=== PATIENT | female | born 1980 | race Two or more races ===

== ENCOUNTER 2017-03-02 19:47 | Emergency (ER) | payer MEDICAID ==
[~2017-03-02] VITALS: Ht 154.9 cm; Wt 71.7 kg
[2017-03-02 22:50] VITALS: BP 168/87
== END 2017-03-02 23:40 | disposition home or self-care (01) ==
LOC: ER 20:02
DX: J32.9 Chronic sinusitis, unspecified (principal)
CPT/HCPCS: 70450

== ENCOUNTER 2018-03-15 11:20 | Emergency (ER) | payer MEDICAID ==
[~2018-03-15] VITALS: Ht 152.4 cm; Wt 67.6 kg
[~2018-03-15 11:20] MED LIST: PANT40TA2 PO; PRE1T PO
[2018-03-15 11:54] LABS: Basophils # (auto) 0.2 uL; Eosinophils # (auto) 0.4 uL; Eosinophils % (auto) 2.4 % (0.0-7.0); Hematocrit 42.3 % (36.0-46.0); Hemoglobin 14.1 g/dL (12.2-16.2); Lymphocytes # (auto) 4.5 uL; Lymphocytes % (auto) 29.9 % (10.0-50.0); Mean Corpuscular Hemoglobin 29.5 pg (28.0-32.0); Mean Corpuscular Hgb Conc. 33.3 g/dL (32.0-36.0); Mean Corpuscular Volume 88.6 fL (80.0-100.0); Monocytes # (auto) 1.4 uL; Monocytes % (auto) 9.1 % (0.0-12.0); Neutrophils # (auto) 8.7 uL; Neutrophils % (auto) 57.6 % (37.0-80.0); Nucleated Red Blood Cells % 0.1 %; Platelet Count (auto) 441 10^3/uL (140-450); Red Blood Cells 4.78 10^6/uL (4.0-5.20); Red Cell Distribution Width 13.9 % (11.8-14.3); White Blood Cell 15.1 10^3/uL (4.4-10.8)
[2018-03-15 12:03] LABS: BUN/Creatinine Ratio 25.8; Calcium 7.5 mg/dL (8.5-10.1); Potassium 4.2 mmol/L (3.5-5.1)
[2018-03-15 12:05] LABS: Bilirubin, Total 0.2 mg/dL (0.2-1.0); Total Protein 8.5 g/dL (6.4-8.2)
[2018-03-15 12:21] VITALS: BP 139/93
[2018-03-15 12:37] LABS: Urine Bacteria FEW /hpf (None Seen); Urine Blood Negative /uL (Negative); Urine Specific Gravity 1.009 (1.001-1.035); Urine WBC 5 /hpf (0 - 5)
== END 2018-03-15 16:34 | disposition home or self-care (01) ==
LOC: ER 11:20
DX: N39.0 Urinary tract infection, site not specified (principal)
CPT/HCPCS: 36415; 80053; 81001; 85025; 94761

== ENCOUNTER 2020-01-31 21:27 | Emergency (ER) | payer MEDICAID ==
[~2020-01-31] VITALS: Ht 154.9 cm; Wt 71.7 kg
[2020-01-31] MEDS ORDERED: cloNIDine HCL 0.1 MG TAB PO ONE (22:00)
[2020-01-31 22:26] LABS: Basophils # (auto) 0.1 10 ^3/uL (0-0.2); Basophils % (auto) 0.5 % (0.0-2.0); Eosinophils # (auto) 0.4 10 ^3/uL (0-0.8); Eosinophils % (auto) 2.5 % (0.0-7.0); Hematocrit 39.8 % (36.0-46.0); Hemoglobin 13.4 g/dL (12.2-16.2); Lymphocytes # (auto) 4.7 10 ^3/uL (0.4-5.4); Lymphocytes % (auto) 31.8 % (10.0-50.0); Mean Corpuscular Hemoglobin 29.2 pg (28.0-32.0); Mean Corpuscular Hgb Conc. 33.5 g/dL (32.0-36.0); Mean Corpuscular Volume 87.2 fL (80.0-100.0); Monocytes # (auto) 1.2 10 ^3/uL (0-1.3); Monocytes % (auto) 8.3 % (0.0-12.0); Neutrophils # (auto) 8.4 10 ^3/uL (1.6-8.6); Neutrophils % (auto) 56.9 % (37.0-80.0); Nucleated Red Blood Cells % 0.1 %; Platelet Count (auto) 340 10^3/uL (140-450); Red Blood Cells 4.57 10^6/uL (4.0-5.20); Red Cell Distribution Width 12.8 % (11.8-14.3); White Blood Cell 14.7 10^3/uL (4.4-10.8)
[2020-01-31 22:32] LABS: Urine Bacteria FEW /hpf (None Seen); Urine Blood Negative /uL (Negative); Urine Mucus FEW (None Seen); Urine Specific Gravity 1.027 (1.001-1.035); Urine WBC 12 /hpf (0 - 5)
[2020-01-31 22:45] LABS: Albumin 3.8 g/dL (3.4-5.0); Anion Gap 3 (5-15); BUN/Creatinine Ratio 21.4; Blood Urea Nitrogen 12 mg/dL (7-18); Calcium 8.9 mg/dL (8.5-10.1); Carbon Dioxide 31 mmol/L (21-32); Chloride 104 mmol/L (98-107); GFR African American 157 mL/min; GFR Non-African American 129 mL/min; Glucose 106 mg/dL (74-106); Magnesium 2.1 mg/dL (1.6-2.6); Potassium 4.1 mmol/L (3.5-5.1); Sodium 138 mmol/L (136-145)
[2020-01-31 22:54] LABS: Alanine Aminotransferase 21 U/L (13-56); Alkaline Phosphatase 72 U/L (45-117); Aspartate Aminotransferase 19 U/L (15-37); Bilirubin, Total 0.2 mg/dL (0.2-1.0); Total Protein 8.4 g/dL (6.4-8.2)
[2020-02-01 01:24] VITALS: BP 131/65
== END 2020-02-01 02:25 | disposition home or self-care (01) ==
LOC: ER 21:29
DX: R07.89 Other chest pain (principal); N39.0 Urinary tract infection, site not specified; R11.2 Nausea with vomiting, unspecified
CPT/HCPCS: 36415; 71045; 80053; 81001; 81025; 83735; 84443; 84484; 85025; 93005

== ENCOUNTER 2021-08-31 17:45 | Emergency (ER) | payer MEDICAID ==
[~2021-08-31] VITALS: Ht 154.9 cm; Wt 71.7 kg
[2021-08-31 21:04] VITALS: BP 188/74
[2021-08-31] MEDS ORDERED: methylPREDNISolone SOD SUCC 125 MG/2 ML VL IM ONE (22:15)
[2021-08-31 22:38] LABS: Basophils # (auto) 0.1 10 ^3/uL (0-0.2); Basophils % (auto) 0.6 % (0.0-2.0); Eosinophils # (auto) 0.3 10 ^3/uL (0-0.8); Eosinophils % (auto) 2.8 % (0.0-7.0); Hemoglobin 12.6 g/dL (12.2-16.2); Lymphocytes # (auto) 4.2 10 ^3/uL (0.4-5.4); Mean Corpuscular Hemoglobin 29.8 pg (28.0-32.0); Mean Corpuscular Hgb Conc. 34.1 g/dL (32.0-36.0); Mean Corpuscular Volume 87.5 fL (80.0-100.0); Monocytes # (auto) 0.9 10 ^3/uL (0-1.3); Neutrophils # (auto) 5.6 10 ^3/uL (1.6-8.6); Neutrophils % (auto) 50.6 % (37.0-80.0); Nucleated Red Blood Cells % 0.1 %; Red Blood Cells 4.23 10^6/uL (4.0-5.20); Red Cell Distribution Width 12.8 % (11.8-14.3); White Blood Cell 11.2 10^3/uL (4.4-10.8)
[2021-08-31 22:48] LABS: INR 1.01 (0.9-1.15)
[2021-08-31 22:53] LABS: Albumin 3.1 g/dL (3.4-5.0); BUN/Creatinine Ratio 16.3; Calcium 8.3 mg/dL (8.5-10.1); Magnesium 2.3 mg/dL (1.6-2.6); Potassium 3.4 mmol/L (3.5-5.1)
[2021-08-31 23:00] LABS: Bilirubin, Total 0.5 mg/dL (0.2-1.0); Total Protein 7.7 g/dL (6.4-8.2)
== END 2021-08-31 23:48 | disposition home or self-care (01) ==
LOC: ER 17:45
DX: L50.9 Urticaria, unspecified (principal); R21 Rash and other nonspecific skin eruption; L29.9 Pruritus, unspecified; R51.9 Headache, unspecified; I10 Essential (primary) hypertension; Z79.899 Other long term (current) drug therapy
CPT/HCPCS: 36415; 80053; 83735; 85025; 85610; 96372; 99283; J2930

== ENCOUNTER 2025-05-21 08:53 | Emergency (ER) | payer MEDICAID ==
[~2025-05-21] VITALS: Ht 154.9 cm; Wt 76.3 kg
[2025-05-21 09:11] VITALS: BP 135/79; PULSE 71; RESP 17; TEMP 98.4; O2SAT 97
[2025-05-21] MEDS ORDERED: CETI5TAB6 PO (09:20)
[2025-05-21] MEDS ORDERED: FLUT1SPR5 (09:20)
--- NOTE | 2025-05-21 09:21 | ED.PDOC ---
Eye-HPI HPI Comments 44-year-old female presents with a chief complaint of tinnitus onset last night. Patient states symptoms started last night Associated with mild discomfort that is rated as mild to moderate Patient has no discharge from the ear canal. No therapies tried for the symptoms noted above. Hearing is intact Denies blunt trauma (hand blow to the ear, fall, direct hit) Denies penetrating trauma (Q-tip use, match-stick, gunshot wound, welding spark) Denies ear trauma Denies barotrauma Denies blast injury Denies air travel Denies scuba diving Denies fever chills night sweats unintentional weight loss Denies nausea vomiting severe headache or recent vision changes Chief Complaint: Earache Time Seen by MD: 09:10 Primary Care Provider: NONE Reviewed Notes: Medications, Allergies Allergies: Coded Allergies: NO KNOWN ALLERGIES (Unverified , 08/17/16) Home Meds Active Scripts Cetirizine Hcl (Cetirizine Hcl) 5 Mg Tab, 10 MG PO DAILY for 30 Days, #60 TAB 0 Refills Prov:ENEIDA HELTON NP 05/21/25 Fluticasone Propionate (Nasal) (Flonase Allergy Relief) 50 Mcg/Act Spr, 1 SPRAY NA BID for 30 Days, #1 BOTTLE 0 Refills Prov:ENEIDA HELTON NP 05/21/25 Pantoprazole Sodium Sesquihydr (Protonix) 40 Mg Tab, 40 MG PO DAILY, #30 TAB Prov:RENEE PICKENS MD 03/11/18 Prednisone (PREDNISONE) 1 Mg Tb, 60 MG PO DAILY, #14 Prov:RENEE PICKENS MD 03/11/18 Information Source: Patient Mode of Arrival: Ambulatory Timing: Hours Duration: Since onset Prehospital treatment: None Quality: Pain Lids: Normal Conjunctiva: Normal Cornea: Normal Pupils: Normal EOM: Normal Fundus: Normal Slit lamp exam: Normal Anterior chamber: Normal Mouth: Normal ENT Ear Exam: Normal, Normal, Normal Nose: Normal Sinuses: Normal Oropharynx: Normal Onset: Spontaneous Throat Exposed to: None Past Medical History PAST MEDICAL HISTORY: Anemia, Gallstones, HTN Surgical History: Denies all surgeries 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 MACHINE OPERATOR History: No Pertinent 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 MACHINE OPERATOR History Family History Family History: Reviewed,noncontributory to illness Social History Smoker: Non-Smoker Alcohol: Denies ETOH Use Drugs: Denies Drug Use Lives In: Home Constitutional: denies: chills, diaphoresis, fatigue, fever, malaise, sweats, weakness, others EENTM: reports: ear pain, ear ringing; denies: blurred vision, double vision, ear bleeding, ear discharge, ear drainage, eye pain, eye redness, hearing loss, mouth pain, mouth swelling, nasal discharge, nose bleeding, nose congestion, nose pain, photophobia, tearing, throat pain, throat swelling, voice changes, others Respiratory: denies: cough, hemoptysis, orthopnea, SOB at rest, shortness of breath, SOB with excertion, stridor, wheezing, others Cardiovascular: denies: chest pain, dizzy spells, diaphoresis, Dyspnea on exertion, edema, irregular heart beat, left arm pain, lightheadedness, palpitations, PND, syncope, others Gastrointestinal: denies: abdomen distended, abdominal pain, blood streaked bowels, constipated, diarrhea, dysphagia, difficulty swallowing, hematemesis, melena, nausea, poor appetite, poor fluid intake, rectal bleeding, rectal pain, vomiting, others Genitourinary: denies: abnormal vagina bleeding, burning, dyspareunia, dysuria, flank pain, frequency, hematuria, incontinence, pain, , vagina discharge, urgency, others Neurological: denies: dizziness, fainting, headache, left sided numbness, left sided weakness, numbness, paresthesia, pre-existing deficit, right sided numbness, right sided weakness, seizure, speech problems, tingling, tremors, weakness, others Musculoskeletal: denies: back pain, gout, joint pain, joint swelling, muscle pain, muscle stiffness, neck pain, others Integumetry: denies: bruises, change in color, change in hair/nails, dryness, laceration, lesions, lumps, rash, wounds, others Allergic/Immunocompromised: denies: Difficulty Healing, Frequent Infections, Hives, Itching, others Hematologic/Lymphatic: denies: anemia, blood clots, easy bleeding, easy bruising, swollen glands, others Endocrine: denies: excessive hunger, excessive sweating, excessive thirst, excessive urination, flushing, intolerance to cold, intolerance to heat, unexplained weight gain, unexplained weight loss, others Psychiatric: denies: anxiety, bipolar disorder, depression, hopeless, panic disorder, schizophrenia, sleepless, suicidal, others All Other Systems: Reviewed and Negative Physical Exam General Appearance: No Apparent Distress, Normal HEENT: Normal ENT Inspection, Pharynx Normal, TMs Normal, Other (HEARING INTACT, NO GROSS ABNORMALITIES, canals are clear, TM intact. No bulging no erythematous) Neck: Full Range of Motion, Non-Tender, Normal, Normal Inspection Respiratory: Chest Non-Tender, Lungs Clear, No Accessory Muscle Use, No Respiratory Distress, Normal Breath Sounds Cardiovascular: No Edema, No JVD, No Murmur, No Gallop, Normal Peripheral Pulses, Regular Rate/Rhythm Breast Exam: Deferred Gastrointestinal: No Organomegaly, Non Tender, No Pulsatile Mass, Normal Bowel Sounds, Soft Genitalia: Deferred Pelvic: Deferred Rectal: Deferred Extremities: No calf tenderness, Normal capillary refill, Normal inspection, Normal range of motion, Non-tender, No pedal edema Musculoskeletal : Apperance: Normal Neurologic: Alert, 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 Was a procedure done?: No EENT DIFF Eye: Other Ear: Abrasion, Cerumen Impaction, Foreign Body, Otitis Externa, Barotrauma, Otitis Media, Perforation, Pharyngitis, Sinusitis, Other X-Ray, Labs, Meds, VS Vital Signs Date Time Temp Pulse Resp B/P (MAP) Pulse Ox O2 Delivery O2 Flow Rate FiO2 05/21/25 09:11 98.4 71 17 135/79 (97) 97 98.4 X-Ray, Labs, Meds, VS Comment 44-year-old female presents with a chief complaint of tinnitus times onset last night. Patient arrives alert and oriented, ABC's intact, afebrile, vital signs stable, saturating well in room air After ROS physical examination there were no red flags. No signs of acute otitis media acute otitis externa no signs of mastoiditis. Noticeable ruptured TM to the unaffected side. No drainage. Canal is clear non erythematous. Informed patient of the physical findings and advised to follow up with PCP and ENT for continuity of care. In regards to tinnitus, explained the prognosis and patient agreed to a trial of antihistamines and Flonase. Patient is stable for discharge at this time. External notes reviewed. Test results and diagnostic imaging interpreted. All diagnostic findings, discharge care, education and instructions provided Follow-up with PCP in 2 to 3 days Patient verbalized understanding and agreed to treatment plan Vital signs stable, afebrile, no acute distress noted Patient ambulatory with strong steady gait Advised to return precautions for any new or worsening symptoms, return to ER immediately for re-evaluation Patient is aware that the purpose of this visit was for an acute medical emergency requiring emergent stabilization. Chronic conditions, including malignancies have not been ruled out. Patient is instructed to follow up with PCP as directed and discharge instructions for continued care and workup. If unable to arrange follow-up, patient is to return to the emergency department for reassessment. Patient (parent or legal guardian if applicable) was given verbal and written discharge instructions and acknowledges understanding. Additional MDM Review of External, Non-ED records: External records reviewed. Discussion with independent historian (EMS, family) history obtained from the patient/parents (if applicable) at bedside Chronic conditions affecting care: None Social determinants of health affecting care: None Consideration of admission (observation or admission): I considered escalation of care to admission for this patient, however given the reassuring workup, the patient is safe for outpatient management. Discussion with the Radiology: No Tests considered but not performed: Prescription medication considered but not given: Time of 1ST Reevaluation: 09:40 Reevaluation 1ST: Unchanged Patient Education/Counseling: Diagnosis, Treatment, Prognosis Family Education/Counseling: No Family Present SEPSIS Sepsis Screen Vital Signs Date Time Temp Pulse Resp B/P (MAP) Pulse Ox O2 Delivery O2 Flow Rate FiO2 05/21/25 09:11 98.4 71 17 135/79 (97) 97 98.4 Departure 1 Departure Time of Disposition: 09:28 Impression: Primary Impression: Tinnitus, right Additional Impression: Tympanic membrane rupture Qualified Codes: H72.92 - Unspecified perforation of tympanic membrane, left ear Disposition: HOME / SELF CARE / HOMELESS Condition: Stable e-Prescriptions Cetirizine Hcl (Cetirizine Hcl) 5 Mg Tab 10 MG PO DAILY for 30 Days, #60 TAB 0 Refills Prov: ENEIDA HELTON HOME APPLIANCE INSTALLER 05/21/25 Fluticasone Propionate (Nasal) (Flonase Allergy Relief) 50 Mcg/Act Spr 1 SPRAY NA BID for 30 Days, #1 BOTTLE 0 Refills Prov: ENEIDA HELTON HOME APPLIANCE INSTALLER 05/21/25 Discharged With: Self Critical Care Note Critical Care Time?: No Stability Stability form required: No I personally scribed for ENEIDA HELTON HOME APPLIANCE INSTALLER ([email or web address]) on 05/21/25 at 09:21. Electronically submitted by Onur Mathur ([email or web address]). ENEIDA HELTON NP May 21, 2025 09:21
== END 2025-05-21 10:37 | disposition home or self-care (01) ==
LOC: ER 08:53
DX: H93.11 Tinnitus, right ear (principal); H72.92 Unspecified perforation of tympanic membrane, left ear; I10 Essential (primary) hypertension; Z79.899 Other long term (current) drug therapy